=== PATIENT | male | born 1945 | race Caucasian/White ===

== ENCOUNTER 2017-05-20 08:54 | Emergency (ER) | payer OTHER ==
[~2017-05-20] VITALS: Ht 182.9 cm; Wt 128.4 kg
[~2017-05-20 08:54] MED LIST: ACTOS 30 MG TAB30 MG PO; ADULT LOW DOSE81 MG PO; DIABETA 5MG TABL5 MG PO; HYDROCHLOROTH12.5 MG PO; HYDROCODON-ACE1 EAC3 PO; JANUVIA50 MG PO; LANTUS; LIPITOR 10 MG10 M1 PO; LISINOPRIL20 MG PO; NORFLEX100 MG PO; ZESTORETIC 20-1 EAC3 PO
[2017-05-20 10:02] LABS: HEMATOCRIT 44.1 % (42.0-52.0); HEMOGLOBIN 14.9 gm/dL (14.0-18.0); MCH 30.3 pg (26.0-34.0); MCHC 33.9 g/dL (28.0-37.0); MCV 89.3 fL (80.0-100.0); RBC 4.94 mil/uL (4.50-6.00); RDW 13.9 % (10.5-14.5); WBC 9.2 thou/uL (4.0-11.0)
[2017-05-20 10:08] LABS: CALCIUM 9.3 mg/dL (8.5-10.1); CREATININE 1.3 mg/dL (0.7-1.3); POTASSIUM 3.9 mmol/L (3.5-5.1)
[2017-05-20 10:14] LABS: ALBUMIN 3.5 g/dL (3.4-5.0); TOTAL BILIRUBIN 0.6 mg/dL (<0.1-1.0); TOTAL PROTEIN 6.6 g/dL (6.4-8.2)
[2017-05-20] MEDS ORDERED: LANTUS100 UNIT/M SUBQ (10:30)
[2017-05-20] MEDS ORDERED: AMARYL4 MG PO (10:31)
[2017-05-20] MEDS ORDERED: PRECOSE 50 MG50 M1 PO (10:32)
[2017-05-20] MEDS ORDERED: LIPITOR80 MG PO (10:33)
[2017-05-20] MEDS ORDERED: FLEXERIL PO (10:34)
[2017-05-20] MEDS ORDERED: ACTOS 45 MG45 M2 PO (10:34)
[2017-05-20] MEDS ORDERED: NORCO 10-325 T1 EACH PO (10:34)
[2017-05-20] MEDS ORDERED: MIRALAX17 GM PO (12:20)
[2017-05-20 12:37] VITALS: BP 194/74
== END 2017-05-20 12:38 | disposition home or self-care (01) ==
LOC: ER 08:54
PROVIDERS: Emergency Medicine
DX: R10.31 Right lower quadrant pain (principal); G47.30 Sleep apnea, unspecified; I10 Essential (primary) hypertension; E11.9 Type 2 diabetes mellitus without complications; Z87.891 Personal history of nicotine dependence; Z79.4 Long term (current) use of insulin

== ENCOUNTER 2017-06-27 18:25 | Emergency (ER) | payer OTHER ==
[~2017-06-27] VITALS: Ht 182.9 cm; Wt 119.8 kg
[~2017-06-27 18:25] MED LIST changes: +ACTOS 45 MG45 M2 PO; +AMARYL4 MG PO; +FLEXERIL PO; +LANTUS100 UNIT/M SUBQ; +LIPITOR80 MG PO; +MIRALAX17 GM PO; +NORCO 10-325 T1 EACH PO; +PRECOSE 50 MG50 M1 PO
[2017-06-27] MEDS ORDERED: UNICOMPLEX M TA1 TA1 PO (18:31)
[2017-06-27] MEDS ORDERED: TOPROL XL25 MG PO (18:32)
[2017-06-27] MEDS ORDERED: MUCINEX100 MG PO (18:32)
[2017-06-27] MEDS ORDERED: OXYCONTIN10 M1 PO (18:52)
[2017-06-27 19:19] LABS: HEMATOCRIT 47.5 % (42.0-52.0); HEMOGLOBIN 16.1 gm/dL (14.0-18.0); MCH 30.1 pg (26.0-34.0); MCHC 33.8 g/dL (28.0-37.0); MCV 89.1 fL (80.0-100.0); RBC 5.33 mil/uL (4.50-6.00); RDW 14.1 % (10.5-14.5); WBC 9.7 thou/uL (4.0-11.0)
[2017-06-27 19:22] LABS: CALCIUM 9.9 mg/dL (8.5-10.1); CREATININE 1.3 mg/dL (0.7-1.3); POTASSIUM 3.6 mmol/L (3.5-5.1)
[2017-06-27 22:13] VITALS: BP 171/72
== END 2017-06-27 22:05 | disposition short-term general hospital (02) ==
LOC: ER 18:25
PROVIDERS: Physician Assistant
DX: M46.26 Osteomyelitis of vertebra, lumbar region (principal); M46.46 Discitis, unspecified, lumbar region; I10 Essential (primary) hypertension; E11.9 Type 2 diabetes mellitus without complications; Z87.891 Personal history of nicotine dependence; W01.0XXA Fall on same level from slipping, tripping and stumbling without subsequent striking against object, initial encounter; Y93.89 Activity, other specified; Y92.89 Other specified places as the place of occurrence of the external cause; Y99.8 Other external cause status